=== PATIENT | female | born 1990 | race Caucasian/White ===

== ENCOUNTER 2018-07-18 14:42 | Emergency (ER) | payer BC, SELFPAY ==
[2018-07-18 14:43] VITALS: BP 145/90; PULSE 107; RESP 14; TEMP 36.6; O2SAT 98
--- NOTE | 2018-07-18 14:55 | NURSING ---
NO OLD EKGS
[2018-07-18 15:04] VITALS: BP 156/86; PULSE 108; RESP 15; O2SAT 100
--- NOTE | 2018-07-18 15:13 | RAD_ITS ---
STUDY: X-RAY CHEST REASON FOR EXAM: Female, 28 years old. Chest pain. TECHNIQUE: Single AP portable view of the chest. COMPARISON: None. FINDINGS: EKG electrodes are seen. The lungs are clear and expanded. There is no demonstrated pleural abnormality. Normal size heart. Normal mediastinum and silvana. Normal visualized pulmonary arteries. Normal visualized aortic arch and descending thoracic aorta. Normal visualized thoracic spine. Normal visualized ribs, clavicles, and shoulders. There is no demonstrated abnormality of the visualized soft tissue structures of the upper abdomen. RAD/Chest 1 View (Portable) IMPRESSION: Normal x-ray examination of the chest. Electronically Signed: Zachariah Sosa MD at 15:39 EST Tel [phone], Service support ,
--- NOTE | 2018-07-18 15:13 | EKG12_ITS ---
Test Reason : Blood Pressure : / mmHG Vent. Rate : 111 BPM Atrial Rate : 111 BPM P-R Int : 114 ms QRS Dur : 078 ms QT Int : 310 ms P-R-T Axes : 020 039 031 degrees QTc Int : 421 ms Sinus tachycardia Otherwise normal ECG Confirmed by DIONNE UMANZOR, RINA ([id number]), continuity editor VANI PERKINS ([id number]) on 07/21/2018 2:48:58 PM Referred By: ALLYSSA Confirmed By:RINA TRUONG MD
[2018-07-18 15:34] LABS: Absolute Lymphocyte Count 2.23 X10^3/ul (0.83-4.51); Absolute Neutrophil Count 6.9 X10^3/uL (2.0-7.7); Basophil# 0.02 X10^3/uL; Basophil% 0.2 % (0-1); Eosinophil# 0.11 X10^3/uL; Eosinophils% 1.1 % (0-5); Hematocrit 40.6 % (37-47); Hemoglobin 13.6 g/dl (12.0-15.0); Lymphocyte # 2.23 X10^3/ul (4.0); Lymphocyte % 22.7 % (19-41); Mean Corp Hgb Conc 33.5 g/gl (32-36); Mean Corpuscular Hgb 28.3 pg (27.0-32.0); Mean Corpuscular Volume 84.4 fL (81-99); Mean Platelet Vol. 9.4 fl (6.2-12.0); Monocyte# 0.59 X10^3/uL; Neutrophil # 6.85 X10^3/uL (2.7-7.7); Neutrophil % 69.9 % (47-70); Platelet Count 222 K/mm3 (150-450); RBC Distribution Width CV 12.9 % (11.6-14.6); RBC Distribution Width SD 39.2 fl (35.1-43.9); Red Blood Count 4.81 M/mm3 (4.2-5.4); White Blood Count 9.8 K/mm3 (4.4-11.0)
[2018-07-18] MEDS: Aspirin 81 MG TAB.CHEW 324 MG PO (15:34)
[2018-07-18] MEDS: 0.9% Normal Saline 1,000 ML 150 ML IV (15:34)
[2018-07-18 15:41] LABS: POSITIVE COUNT NO; POSITIVE DIFFERENTIAL NO; POSITIVE MORPHOLOGY NO
[2018-07-18 15:58] LABS: Anion Gap 7 (5-15); BUN 16 mg/dL (7-18); BUN/Creat Ratio 21.6 RATIO (10-20); Calcium,Total 9.2 mg/dL (8.5-10.1); Chloride 104 mmol/L (98-107); Creatinine, Serum 0.74 mg/dL (0.55-1.02); D-Dimer Quantitative (DVT/PE) 0.35 FEU/ug/m (0.27-0.49); EST Glomerular Filtration Rate 101 mL/min (>60); Est Glom Filt Rate - Afr Amer 122 mL/min (>60); Estimated Creatinine Clearance 91.12 ml/min; Glucose 93 mg/dL (74-106); Potassium 3.6 mmol/L (3.5-5.1); Sodium Level 137 mmol/L (136-145)
[2018-07-18 16:13] LABS: Erythrocyte Sedimentation Rate 10 mm/hr (0-20)
--- NOTE | 2018-07-18 16:24 | ED.VISSUMM ---
- ER Visit Summary Date of Service: 07/18/18 Chief Complaint: [Chest pain] History of Present Illness: The patient is a 28 F [resents the emergency department complaint of chest pain that started a week ago. Patient states initially she woke up and felt a pop underneath her left breast and ever since then she is had intermittent chest discomfort that she describes as sharp. Patient states that at times is worse with certain movements or deep breathing. Patient also noticed a correlation that drinking cold water sometimes seems to resolve the pain for a short time. Patient denies recent travel or surgery. She has had a slight cough but no fever. She is not on any hormone replacement therapy and is not on an oral contraceptive. She is never had a blood clot in the past. Patient she had an episode of chest pain a year ago and her doctor apparently at that time did some workup but no etiology was ever found.] Physical Examination: [HEENT-PERRLA, EOMI. Cranial nerves II through XII grossly intact. TMs clear. Mucous membranes moist. No adenopathy. Cardiovascular-regular rate and rhythm without murmur or ectopy Lungs-clear to auscultation, chest wall stable without crepitus or subcu emphysema. Patient does have some mild tenderness palpation over the anterior chest just inferior to the left breast. Abdomen-normoactive bowel sounds, soft, nontender, no rebound or rigidity, no peritoneal signs. Extremities-intact ?4, normal range of motion, normal pulses, atraumatic] Test Results: [EKG obtained arrival shows sinus rhythm with ventricular rate of 111 bpm with no acute ST segment changes. CBC with differential is normal. Chemistries were normal. Troponin was less than 0.015. D-dimer was 0.35. Sed rate was 10. Chest x-ray was normal.] Emergency Department Course and Treatment: [] Treatment Plan: [Patient to follow-up with her primary care physician 3-5 days. In the differential would be GERD, pleurisy, or chest wall pain.] Disposition: [Discharged home in stable condition] Impression: [Chest pain-etiology uncertain] This note was generated with [employer] software. It may contain incorrect words, spelling, and punctuation that were not noted in review of the chart prior to signing ED Disposition - Plan for ED Patient: Chief Complaint: Chest Pain Referrals: Jc Falcon [Primary Care Provider] -
--- NOTE | 2018-07-18 16:26 | ED.DEP ---
ED Disposition - Plan for ED Patient: Chief Complaint: Chest Pain Instructions: ED Chest Pain Atypical Unkn Cause Prescriptions: Lansoprazole [Prevacid] 30 mg PO DAILY #30 cap Referrals: Jc Falcon [Primary Care Provider] - 3-5 Days
[2018-07-18 16:30] VITALS: BP 127/77; PULSE 85; RESP 16; O2SAT 98
== END 2018-07-18 16:33 | disposition home or self-care (01) ==
LOC: ED 15:26
PROVIDERS: Emergency Provider Emergency Medicine; Family Provider Internal Medicine; PCP Internal Medicine
DX: R07.9 Chest pain, unspecified (principal); R05 Cough; R11.0 Nausea
CPT/HCPCS: 71045; 80048; 84484; 85025; 85379; 85652; 93005; 96360; 99285; A4216

== ENCOUNTER 2019-11-10 11:48 | Emergency (ER) | payer MEDICAID, SELFPAY ==
[2019-11-10 11:49] VITALS: BP 158/88; PULSE 99; RESP 16; TEMP 36.6; O2SAT 99; BMI 28.3
--- NOTE | 2019-11-10 11:54 | RAD_ITS ---
STUDY: X-RAY - LEFT WRIST REASON FOR EXAM: Female, 29 years old. Fell while skating today TECHNIQUE: 3 view(s) of the wrist were obtained. COMPARISON: None. FINDINGS: There is a comminuted intra-articular impacted displaced fracture of the distal radius. There is a displaced fracture of the ulnar styloid. Normal radiocarpal articulation. Normal distal radioulnar articulation. Normal carpal bones. Normal carpal articulations. Normal carpometacarpal articulation of the thumb. Normal second through fifth carpometacarpal articulations. Normal visualized metacarpal bones. The soft tissue structures are unremarkable. RAD/Wrist min 3 Views IMPRESSION: Fractures of the distal radius and ulna as described above. Electronically Signed: Tristen Lane MD at 12:22 EST Tel , Service support ,
--- NOTE | 2019-11-10 11:56 | ED.VIS.UPPEX ---
History of Present Illness <Homar Platt - Last Filed: 11/10/19 13:00> Informant: Patient, Family Occurred: Today Mechanism/Context: Fall Onset: Today Context: Sudden Onset Timing: Continuous Quality of Pain: Sharp Location: Left wrist Current Severity: Severe Maximum Severity: Severe Worsened by: Movement Relieved by: nothing Associated Symptoms: Negative for: Parasthesia, Weakness, Loss of Funtion Narrative: 29-year-old [id number] female presents to the emergency department with a left wrist injury. She was rollerskating. She fell onto her outstretched left hand. This occurred just prior to arrival. She had no prodromal symptoms. She denied hit her head or lose consciousness. She denies any other injuries. She denies numbness tingling or weakness. She has never had any injuries or surgeries to this extremity previously. Tetanus Immunization: Unknown Prior similar symptoms: No Recent Illness/Hospitalization: No <Chase Guerrero - Last Filed: 11/10/19 13:40> Chief Complaint: Upper Extremity Injury Past Medical History <Homar Platt - Last Filed: 11/10/19 13:00> Prior records reviewed: Yes Past Medical History: None Surgical History: no surgical history Lives: With Family Smoking Status: Never smoker Alcohol: None Drugs: None <Chase Guerrero - Last Filed: 11/10/19 13:40> - Allergies and Home Meds Allergies/Adverse Reactions: Allergies amoxicillin Allergy (Verified 11/10/19 11:51) Rash codeine Allergy (Verified 11/10/19 11:51) Vomiting Primary Care Physician: Jc Falcon [NON-STAFF] - Review of Systems All systems negative except as indicated General: Denies: Chills, Fever Eyes: Denies: Visual changes - bilaterally, Blurred Vision - bilaterally, Diplopia ENT: Denies: Rhinorrhea, Sore throat Cardiovascular: Denies: Chest pain, Palpitations, Heart racing Respiratory: Denies: Dyspnea, Cough, Sputum Gastrointestinal: Denies: Abdominal pain, Nausea, Vomiting, Diarrhea Genitourinary: Denies: Dysuria, Hematuria, Frequency Musculoskeletal: Reports: Swelling, Extremity Pain. Denies: Back pain Skin: Denies: Rash, Abscess, Abrasions, Wounds Neurological: Denies: Headache, Weakness, Parasthesia, Numbness <Chase Guerrero - Last Filed: 11/10/19 13:40> Physical Exam Vital Signs/Narrative: Vital Signs Temp Pulse Resp BP Pulse Ox 11/10/19 11:49 97.8 F 99 16 158/88 H 99 <Homar Platt - Last Filed: 11/10/19 13:00> Vital Signs/Narrative: Vital Signs Temp Pulse Resp BP Pulse Ox 11/10/19 11:49 97.8 F 99 16 158/88 H 99 Inital Vital Signs reviewed: Yes Left Wrist: - - Obvious deformity left wrist with significant swelling. Skin is intact. Radial pulse intact. Capillary refill, sensation all 5 fingers intact. Limited range of motion due to pain and swelling. No bony tenderness of the hand but is diffusely tender throughout the wrist. Mostly distal radius. No forearm elbow shoulder tenderness or signs of injury. 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 Performed my own [id number] evaluation. Agree with plan and work-up. Rollerskating fall on outstretched hand. Left hand dominant. Right arm fracture at 5 years old. Does not follow orthopedist. Pain in distal wrist. No head injuries. Denies paresthesias. Left extremity exam notes deformity at the wrist dorsal angulation tenderness. Skin intact. Neurovascular intact distally. Patient treated with Datil, x-ray notes comminuted distal radius with ulnar styloid fracture. Dorsal angulation. Patient placed in finger traps after fracture block, fracture reduced, placed in a plaster splint flexed position. Neurovascular intact post splint. Patient tolerated well. Post reduction films obtained. Will discuss with orthopedist for follow-up. <Homar Platt - Last Filed: 11/10/19 13:00> Procedures - Upper Extremity Splints Upper Extremity Splint: Plaster, - - AP splint with sugar tong Splint Fabrication: Fabricated Location: Left Procedure(s): Hematoma block was performed using bupivacaine. 10 cc of bupivacaine was drawn up. Needle was inserted into the fracture space. Periosteum reached. Bupivacaine was injected. Needle further introduced into fracture space and blood was aspirated and the remaining of the bupivacaine was injected into the fracture area. The patient had significant improvement of her pain. She was then placed in finger traps and on repeat evaluation after 30 minutes there was improvement of the fracture alignment on visual inspection. She was placed in an AP plaster splint. Repeat x-rays were obtained. After splinting she is neurovascularly intact. <Chase Guerrero - Last Filed: 11/10/19 13:40> ED Disposition <Homar Platt - Last Filed: 11/10/19 13:00> <Chase Guerrero - Last Filed: 11/10/19 13:40> - Plan for ED Patient: Disposition: Home or Assisted Living Diagnosis: Distal radius fracture, left, Fracture of ulnar styloid Instructions: RADIUS AND ULNA FX, Reduction Required Prescriptions: Oxycodone HCl/Acetaminophen [Percocet 5/325] 1 tab PO Q6H PRN PRN 5 Days #20 tab PRN Reason: Pain Score 6-10/10 Prescription Printed Referrals: Souleymane Yousif DO [STAFF PHYSICIAN] - 3-5 Days
[2019-11-10] MEDS: HYDROcodone Bitartrate/Apap 5/325 Tablet PO (12:00)
[2019-11-10] MEDS: Bupivacaine Mpf 0.5% 30 ML VIAL INFILT (12:50)
--- NOTE | 2019-11-10 12:58 | RAD_ITS ---
STUDY: X-RAY - LEFT WRIST REASON FOR EXAM: Female, 29 years old. POST REDUCTION TECHNIQUE: 2 view(s) of the wrist were obtained. COMPARISON: November 10, 2019 at 11:58 hours FINDINGS: Status post reduction of a comminuted distal radial fracture. Fracture fragments demonstrate improved alignment and approximation with decreased angulation. Avulsion of the ulnar styloid is again noted. Interval cast placement. RAD/Wrist 2 Views IMPRESSION: Status post reduction and cast placement of the wrist. Electronically Signed: Ap Connell DO at 14:48 EST Tel [phone], Service support ,
[2019-11-10 13:52] VITALS: BP 133/78; PULSE 79; RESP 16; O2SAT 99
== END 2019-11-10 13:52 | disposition home or self-care (01) ==
PROVIDERS: Emergency Provider Physician Assistant Medical
DX: S52.502A Unspecified fracture of the lower end of left radius, initial encounter for closed fracture (principal); S52.612A Displaced fracture of left ulna styloid process, initial encounter for closed fracture; W19.XXXA Unspecified fall, initial encounter; Y93.51 Activity, roller skating (inline) and skateboarding; Y92.9 Unspecified place or not applicable
CPT/HCPCS: 25605; 73100; 73110; 99283

== ENCOUNTER → 2020-07-21 13:33 | Outpatient (CLI) | payer MEDICAID, SELFPAY | PROVIDERS: PCP Internal Medicine; Referring Provider Internal Medicine; Visit Provider Internal Medicine | DX: R00.2 Palpitations (principal) | CPT/HCPCS: 93225; 93226 ==